=== PATIENT | male | born 2000 | race African-American/Black ===

== ENCOUNTER 2022-06-06 09:34 | Emergency (ER) | payer OTHER ==
[~2022-06-06] VITALS: Ht 180.3 cm; Wt 81.4 kg
[2022-06-06] MEDS ORDERED: IBUP-1022 PO (12:52)
[2022-06-06] MEDS ORDERED: CYCL-707 PO (12:52)
[2022-06-06 13:02] VITALS: BP 133/61
== END 2022-06-06 13:03 | disposition home or self-care (01) ==
LOC: M ED 09:34
DX: S06.0X0A Concussion without loss of consciousness, initial encounter (principal); S16.1XXA Strain of muscle, fascia and tendon at neck level, initial encounter; S39.012A Strain of muscle, fascia and tendon of lower back, initial encounter; V49.40XA Driver injured in collision with unspecified motor vehicles in traffic accident, initial encounter; Z79.1 Long term (current) use of non-steroidal anti-inflammatories (NSAID); Z79.899 Other long term (current) drug therapy; Y92.410 Unspecified street and highway as the place of occurrence of the external cause

== ENCOUNTER 2024-05-30 23:56 | Emergency (ER) | payer OTHER ==
[~2024-05-30] VITALS: Ht 182.9 cm; Wt 90.7 kg
[~2024-05-30 23:56] MED LIST: CYCL-707 PO; IBUP-1022 PO
[2024-05-30 23:59] VITALS: TEMP 98.9
[2024-05-31] MEDS: methylPREDNISolone 125MG 2ML VIAL IV ONE (00:52)
[2024-05-31] MEDS: FAMOTIDINE 20MG/2ML VIAL IVP ONE (00:52)
[2024-05-31] MEDS: diphenhydrAMINE 50MG/ML VIAL IV ONE (00:52)
[2024-05-31] MEDS ORDERED: EPIP0.3I2 IM (02:12)
[2024-05-31] MEDS ORDERED: PRED20TA PO (02:12)
[2024-05-31 03:00] VITALS: BP 125/69; O2SAT 97
== END 2024-05-31 03:15 | disposition home or self-care (01) ==
LOC: M ED 23:56
DX: T78.02XA Anaphylactic reaction due to shellfish (crustaceans), initial encounter (principal); F10.10 Alcohol abuse, uncomplicated; Z91.013 Allergy to seafood; Z79.52 Long term (current) use of systemic steroids; Z79.899 Other long term (current) drug therapy
CPT/HCPCS: 93041; 94760; 96374; 99284; J1200; J2919; S0028